=== PATIENT | male | born 1945 | race Caucasian/White ===

== ENCOUNTER 2018-01-26 14:52 | Inpatient (IN) | payer OTHER ==
[~2018-01-26] VITALS: Ht 167.6 cm; Wt 53.8 kg
--- NOTE | ~2018-01-26 | O ---
[place], [place] OPERATIVE NOTE NAME: ELIZABETH AIKEN UNIT #: [id number] ROOM: 411 DOCTOR: ROSAURA MCMANUS MD BIRTHDATE: [birth year] DOS: 01/27/2018 GASTROENDOSCOPIC REPORT INDICATIONS: A 72-year-old patient, who has presented with chief complaint of jaundice with bilirubin of 13, abnormal LFTs otherwise. PROCEDURE: Today's procedure part of investigation is ERCP plus papillotomy plus balloon dilation of common bile duct plus common bile duct stent. PREMEDICATION: Versed and propofol. SCOPE: Olympus side-viewing duodenoscope. REPORT: After putting the patient in left lateral position and application of lubricant to the scope, the scope was introduced; thereafter, under direct visualization, advanced through the length of esophagus into gastric pouch into duodenal bulb. Papilla of Vater was defined. Selective cannulization of common duct was undertaken. Guidewire was introduced. Hepatic radicles opacified. There is an apple core high grade stricture of proximal common duct and upper common duct. At this stage, after papillotomy at 1 o'clock, then balloon size 12 was introduced into the proximal hepatic radicles and obstructed pathology was dilated and after that a stent size 10 x 7 was deployed into the common duct and free flow of dark bile was noticed. Photographic series and radiologic evidence of deployment of the stent was documented. Air was suctioned out. The patient was extubated, tolerated procedure well. IMPRESSION: ERCP, status post papillotomy, status post balloon dilation of common ductal carcinoma and stricture, status post common duct stent size 10 x 7. PLAN AND DISCUSSION: Supportive therapy. Liver function test tomorrow. He can get solid food today to eat and we are going to avoid blood thinners at this stage, status post papillotomy and clinical reassessment. [place], [place] OPERATIVE NOTE NAME: ELIZABETH AIKEN UNIT #: [id number] ROOM: 411 DOCTOR: ROSAURA MCMANUS MD BIRTHDATE: [birth year] ROSAURA MCMANUS MD CM:OPRECORD:OPERATIVE NOTE 1308 [id number] ROSAURA MCMANUS MD 01/27/18 1400 interface
--- NOTE | ~2018-01-26 | CON ---
[place], [place] REPORT OF CONSULTATION NAME: ELIZABETH AIKEN UNIT #: [id number] ROOM: 411 DOCTOR: YONATHAN TEEROSAURA BIRTHDATE: [birth year] DOS: 01/27/2018 HISTORY OF PRESENT ILLNESS: This is 72-year-old who has gone to [facility] for his routine medical affairs and he was told that he has jaundice and he should go to the hospital to be taken care of. PAST MEDICAL AND SURGICAL HISTORY: The patient has history of COPD, bladder carcinoma, thyroid carcinoma, suspected esophageal carcinoma, the detail is not known by him. PEG tube surgery. SOCIAL HISTORY: Smoker and nonalcohol consumer. FAMILY HISTORY: Noncontributory. ALLERGIES: To no known medications. MEDICATIONS: Medication list limited to albuterol. REVIEW OF SYSTEMS: HEENT: Denies double vision, blurred vision. RESPIRATORY: Denies shortness of breath. CARDIOVASCULAR: Denies chest pain. DIGESTIVE SYSTEM: Some dysphagia. Old history of PEG placement and removal. PHYSICAL EXAMINATION: VITAL SIGNS: Stable. HEENT: Within normal limit. NECK: Supple, no thyromegaly, no cervical lymphadenopathy. CHEST: Symmetric anatomy, COPD pattern decreased air entry. HEART: Normal sinus rhythm, no gallop, no murmur. ABDOMEN: Soft. No hepato-organomegaly. Bowel sounds present. No pulsatile mass, urostomy functional. EXTREMITIES: No cyanosis, no pedal edema. NEUROLOGIC: Alert, oriented to time, place, and person. LABORATORY DATA: Reviewed. Records reviewed. Urinalysis, active urine, 2+ bacteria; otherwise, CBC: White blood cells 7, H and H of 13 and 38, platelet count of 213. Comprehensive metabolic panel: BUN and creatinine 40 and 2.21 with GFR of 35. His electrolytes are balanced. His liver function test, the initial one in the Emergency Room that was discussed with Dr. [place], GOT 140+ and GPT 215+, alkaline phosphatase 220+ and bilirubin 13.0. CT scan of the abdomen and pelvis subsequently was done and the gallbladder is distended, underlying sludge or possible stone as well as mild pericholecystic inflammatory changes and common bile duct is markedly dilated to 2.2 with mild to moderate intrahepatic biliary dilation. Distal common bile duct is not well visualized. Findings concern for acute cholecystitis and possible choledocholithiasis was raised. Gastric wall thickening suggestive of gastritis was noticed. No definitive evidence of metastatic pathology identified. Coronary calcification was seen. Nodules in the right lower lobe of the lungs was identified. Lactic acid was 1.3. Troponins in 3 events was negative. CBC differential essentially [place], [place] REPORT OF CONSULTATION NAME: ELIZABETH AIKEN UNIT #: [id number] ROOM: 411 DOCTOR: ROSAURA MCMANUS MD BIRTHDATE: [birth year] remained unremarkable with the same GFR 35 continued, hemoglobin A1c 5.3 within normal limits. Viral hepatitis panel is negative. Urine culture greater than 100,000 bacteria, which is matching his active urinalysis. His B12 and folate was 913 and 5.8 respectively within normal limit. Vitamin D 15.6 with our normal lows to be 30. So hypovitamine D. Labs reviewed, records reviewed. IMPRESSION: Dilated common duct, rule out distal common duct obstruction with a malignant versus obstructive pathology. Workup in progress. OTHER ADJUNCTIVE DIAGNOSES: As outlined. Past medical and surgical history including COPD, esophageal carcinoma, suspected bladder carcinoma, thyroid carcinoma history. PLAN AND DISCUSSION: I hope we have the chance to proceed with ERCP if there is no obstruction of the esophagus and if it is, then we will be faced with dilation of esophagus and preparation of the patient for ____. Thank you very much indeed. Workup in progress. ROSAURA MCMANUS MD CM:CONSTR:REPORT OF CONSULTATION 1157 01/27/18 [id number] interface
[2018-01-26 14:57] VITALS: BP 140/90
[2018-01-26 14:59] LABS: BILIRUBIN 3+ (NEGATIVE); BLOOD 3+ (NEGATIVE); CLARITY SL CLOUDY (CLEAR); COLOR YELLOW (YELLOW); GLUCOSE NEGATIVE (NEGATIVE); KETONE NEGATIVE (NEGATIVE); LEUKO ESTERASE 2+ (NEGATIVE); NITRITE NEGATIVE (NEGATIVE); PH 5.5 (5.0-9.0); UROBILINOGEN 0.2 E.U./dl (0.2-1.0)
[2018-01-26 15:07] LABS: BACTERIA 2+; EPITHELIAL CELLS 0-2; RBC TNTC rbc/hpf (0-2); WBC TNTC wbc/hpf (0-5)
[2018-01-26 16:15] VITALS: BP 133/62
[2018-01-26 16:37] LABS: BASO # 0.1 10*3/uL (0.0-0.1); BASO % 0.7 % (0.0-1.0); EOS # 0.2 10*3/uL (0.0-0.4); EOS % 2.3 % (1.0-4.0); HEMATOCRIT 38.7 % (42.0-52.0); LYMPH # 0.6 10*3/uL (1.3-4.4); LYMPH % 8.5 % (27.0-41.0); MEAN CELL VOLUME 98.7 fl (80.0-94.0); MEAN CORPUSCULAR HGB 33.2 pg (27.0-31.0); MEAN CORPUSCULAR HGB CONC 33.6 g/dl (33.0-37.0); MEAN PLATELET VOLUME 10.9 fl (9.6-12.3); MONO # 0.6 10*3/uL (0.1-1.0); MONO % 9.1 % (3.0-9.0); NEUT # 5.5 10*3/uL (2.3-7.9); NEUT % 78.7 % (47.0-73.0); PLATELET COUNT AUTOMATED 213 10*3/uL (130-400); RED BLOOD COUNT 3.92 10*6/uL (4.50-5.90); RED CELL DISTRI WIDTH 14.9 % (0-14.5)
[2018-01-26 16:51] VITALS: BP 129/59
[2018-01-26 16:56] LABS: ALBUMIN 2.8 gm/dl (3.1-4.5); CREATININE 2.21 mg/dL (0.70-1.30); POTASSIUM 4.1 mmol/L (3.5-5.1); TOTAL PROTEIN 7.4 gm/dL (6.4-8.2)
[2018-01-26 17:15] VITALS: BP 135/57
[2018-01-26 19:19] VITALS: BP 144/74
[2018-01-26 20:00] VITALS: BP 141/58; BP 145/58
[2018-01-26] MEDS ORDERED: PROVENTIL HFA6.7 GM INH (20:14)
[2018-01-27] VITALS (12 sets, daily range): BP systolic 103–156; BP diastolic 52–79
[2018-01-27 06:11] LABS: HEPATITIS B SURFACE AG Negative (Negative); HEPATITIS C VIRUS ANTIBODY <0.1 s/co (0.0-0.9)
[2018-01-27 06:43] LABS: ALBUMIN 2.1 gm/dl (3.1-4.5); BASO # 0.1 10*3/uL (0.0-0.1); CREATININE 2.27 mg/dL (0.70-1.30); EOS # 0.2 10*3/uL (0.0-0.4); EOS % 2.9 % (1.0-4.0); HEMATOCRIT 34.2 % (42.0-52.0); HEMOGLOBIN 11.7 g/dl (14.0-18.0); LYMPH # 0.5 10*3/uL (1.3-4.4); LYMPH % 8.3 % (27.0-41.0); MEAN CELL VOLUME 98.3 fl (80.0-94.0); MEAN CORPUSCULAR HGB 33.6 pg (27.0-31.0); MEAN CORPUSCULAR HGB CONC 34.2 g/dl (33.0-37.0); MEAN PLATELET VOLUME 10.9 fl (9.6-12.3); MONO # 0.6 10*3/uL (0.1-1.0); MONO % 9.5 % (3.0-9.0); NEUT # 4.6 10*3/uL (2.3-7.9); NEUT % 77.8 % (47.0-73.0); PHOSPHOROUS 3.2 mg/dL (2.5-4.9); PLATELET COUNT AUTOMATED 200 10*3/uL (130-400); POTASSIUM 4.8 mmol/L (3.5-5.1); RED BLOOD COUNT 3.48 10*6/uL (4.50-5.90); RED CELL DISTRI WIDTH 15.1 % (0-14.5); TOTAL PROTEIN 5.8 gm/dL (6.4-8.2); WHITE BLOOD COUNT 5.9 10*3/uL (4.8-10.8)
[2018-01-27 06:47] LABS: THYROID STIM HORMONE (HS) 3.89 uIU/ml (0.358-4.75)
[2018-01-27 07:02] LABS: ACT PARTIAL THROMBO TIME 29.1 SECONDS (20.8-31.5); INTERNATIONAL NORM RATIO 1.1 (2.0-3.5)
[2018-01-27 09:49] LABS: VITAMIN D, 25-HYDROXY 15.6 ng/mL (30-100)
[2018-01-28] VITALS: BP 131/57
[2018-01-28 07:45] LABS: BASO % 0.4 % (0.0-1.0); HEMATOCRIT 37.9 % (42.0-52.0); HEMOGLOBIN 12.5 g/dl (14.0-18.0); LYMPH # 0.4 10*3/uL (1.3-4.4); LYMPH % 5.6 % (27.0-41.0); MEAN CELL VOLUME 99.5 fl (80.0-94.0); MEAN CORPUSCULAR HGB 32.8 pg (27.0-31.0); MEAN PLATELET VOLUME 11.3 fl (9.6-12.3); MONO # 0.3 10*3/uL (0.1-1.0); MONO % 4.3 % (3.0-9.0); NEUT # 6.3 10*3/uL (2.3-7.9); NEUT % 88.9 % (47.0-73.0); PLATELET COUNT AUTOMATED 238 10*3/uL (130-400); RED BLOOD COUNT 3.81 10*6/uL (4.50-5.90); RED CELL DISTRI WIDTH 15.3 % (0-14.5); WHITE BLOOD COUNT 7.1 10*3/uL (4.8-10.8)
[2018-01-28 07:47] LABS: ALBUMIN 2.1 gm/dl (3.1-4.5); PHOSPHOROUS 3.6 mg/dL (2.5-4.9); POTASSIUM 4.4 mmol/L (3.5-5.1); TOTAL PROTEIN 5.8 gm/dL (6.4-8.2)
[2018-01-28 08:00] VITALS: BP 132/66
[2018-01-28 08:20] LABS: CREATININE 2.36 mg/dL (0.70-1.30)
[2018-01-28 12:00] VITALS: BP 130/68
== END 2018-01-28 13:50 | disposition home or self-care (01) | DRG 871 ==
LOC: ED 14:52 → EDHOLD 19:02 → 4E 19:02
PROVIDERS: Emergency Medicine; Family Medicine; Internal Medicine; Nurse Practitioner
PROC: 0F798DZ Dilation of Common Bile Duct with Intraluminal Device, Via Natural or Artificial Opening Endoscopic (ICD-10-PCS; principal; 2018-01-27)
DX: A41.9 Sepsis, unspecified organism (principal); N17.0 Acute kidney failure with tubular necrosis; C24.0 Malignant neoplasm of extrahepatic bile duct; K80.63 Calculus of gallbladder and bile duct with acute cholecystitis with obstruction; E44.0 Moderate protein-calorie malnutrition; E87.1 Hypo-osmolality and hyponatremia; D72.810 Lymphocytopenia; D64.9 Anemia, unspecified; N39.0 Urinary tract infection, site not specified; Z68.1 Body mass index [BMI] 19.9 or less, adult; J44.9 Chronic obstructive pulmonary disease, unspecified; R65.20 Severe sepsis without septic shock; R03.0 Elevated blood-pressure reading, without diagnosis of hypertension; K29.70 Gastritis, unspecified, without bleeding; R91.1 Solitary pulmonary nodule; R74.0 Nonspecific elevation of levels of transaminase and lactic acid dehydrogenase [LDH]; F17.210 Nicotine dependence, cigarettes, uncomplicated; Z85.51 Personal history of malignant neoplasm of bladder; Z71.6 Tobacco abuse counseling; Z85.850 Personal history of malignant neoplasm of thyroid; Z85.01 Personal history of malignant neoplasm of esophagus; Z92.21 Personal history of antineoplastic chemotherapy; Z92.3 Personal history of irradiation; Z82.49 Family history of ischemic heart disease and other diseases of the circulatory system

== ENCOUNTER 2018-03-28 10:44 | Emergency (ER) | payer OTHER ==
[~2018-03-28] VITALS: Ht 170.1 cm; Wt 54.4 kg
[~2018-03-28 10:44] MED LIST: PROVENTIL HFA6.7 GM INH
[2018-03-28 11:39] LABS: BASO # 0.1 10*3/uL (0.0-0.1); BASO % 1.1 % (0.0-1.0); EOS # 0.1 10*3/uL (0.0-0.4); EOS % 1.9 % (1.0-4.0); HEMATOCRIT 42.3 % (42.0-52.0); LYMPH # 0.4 10*3/uL (1.3-4.4); LYMPH % 9.3 % (27.0-41.0); MEAN CELL VOLUME 99.3 fl (80.0-94.0); MEAN CORPUSCULAR HGB 32.9 pg (27.0-31.0); MEAN CORPUSCULAR HGB CONC 33.1 g/dl (33.0-37.0); MONO # 0.6 10*3/uL (0.1-1.0); MONO % 12.5 % (3.0-9.0); NEUT # 3.5 10*3/uL (2.3-7.9); PLATELET COUNT AUTOMATED 145 10*3/uL (130-400); RED BLOOD COUNT 4.26 10*6/uL (4.50-5.90); RED CELL DISTRI WIDTH 13.5 % (0-14.5); WHITE BLOOD COUNT 4.7 10*3/uL (4.8-10.8)
[2018-03-28 11:49] LABS: ACT PARTIAL THROMBO TIME 28.3 SECONDS (20.8-31.5)
[2018-03-28 11:53] LABS: ALBUMIN 3.5 gm/dl (3.1-4.5); CREATININE 1.78 mg/dL (0.70-1.30); POTASSIUM 4.4 mmol/L (3.5-5.1); TOTAL PROTEIN 7.3 gm/dL (6.4-8.2)
[2018-03-28 13:08] LABS: BF MONOCYTES 7 %; BF NEUTROPHILS 93 %; BODY FLUID WBC 14308 /uL
[2018-03-28] MEDS ORDERED: PREDNISONE50 MG PO (14:02)
== END 2018-03-28 14:15 | disposition home or self-care (01) ==
LOC: ED 10:44
PROVIDERS: Emergency Medicine
DX: M25.461 Effusion, right knee (principal); M11.861 Other specified crystal arthropathies, right knee; J44.9 Chronic obstructive pulmonary disease, unspecified; Z79.899 Other long term (current) drug therapy; Z90.89 Acquired absence of other organs